=== PATIENT | male | born 1990 | race Caucasian/White ===

== ENCOUNTER 2023-08-27 18:02 | Emergency (ER) | payer OTHER ==
[2023-08-27 18:27] LABS: BASOPHILS # (AUTO) 0.1 10^3/uL (0.0-0.1); BASOPHILS % (AUTO) 0.6 %; EOSINOPHILS # (AUTO) 0.5 10^3/uL (0.0-0.7); EOSINOPHILS % (AUTO) 4.7 %; HGB - HEMOGLOBIN 15.4 g/dL (14.0-18.0); LYMPHOCYTES # (AUTO) 4.8 10^3/uL (1.5-3.5); LYMPHOCYTES % (AUTO) 40.9 %; MEAN CORPUSCULAR HGB CONC 34.2 g/dL (32.0-36.0); MEAN CORPUSCULAR VOLUME 87.7 fL (80.0-94.0); MEAN PLATELET VOLUME 9.3 fL (7.4-11.4); MONOCYTES # (AUTO) 0.9 10^3/uL (0.0-1.0); MONOCYTES % (AUTO) 7.8 %; NEUTROPHILS # (AUTO) 5.3 10^3/uL (1.5-6.6); NEUTROPHILS % (AUTO) 45.8 %; PLT - PLATELET COUNT 310 10^3/uL (130-450); RED BLOOD COUNT 5.13 10^6/uL (4.70-6.10); RED CELL DISTRIBUTION WIDTH 11.9 % (12.0-15.0); WHITE BLOOD COUNT 11.6 x10^3/uL (4.8-10.8)
[2023-08-27 18:29] LABS: BILIRUBIN,URINE NEGATIVE (NEGATIVE); GLUCOSE, URINE (UA) NEGATIVE (NEGATIVE); KETONES,URINE (UA) NEGATIVE (NEGATIVE); LEUKOCYTE ESTERASE, URINE NEGATIVE (NEGATIVE); NITRITE,URINE NEGATIVE (NEGATIVE); OCCULT BLOOD,URINE NEGATIVE (NEGATIVE); PH,URINE 7.5 PH (5.0-7.5); PROTEIN,URINE NEGATIVE (NEGATIVE); UROBILINOGEN,URINE 0.2 (NORMAL) E.U./dL (NORMAL)
[2023-08-27 18:30] LABS: CLARITY,URINE CLEAR (CLEAR)
[2023-08-27 18:44] LABS: ALBUMIN 4.8 g/dL (3.2-5.5); ALBUMIN/GLOBULIN RATIO 1.9 (1.0-2.2); BILIRUBIN,TOTAL 0.4 mg/dL (0.2-1.0); CALCIUM 9.9 mg/dL (8.5-10.3); CREATININE 0.8 mg/dL (0.6-1.3); POTASSIUM 3.7 mmol/L (3.5-4.5); TOTAL PROTEIN 7.3 g/dL (6.4-8.9)
--- NOTE | 2023-08-27 19:55 | ED Physician Documentation ---
PD HPI ABD PAIN - Stated complaint Stated Complaint: ABD PX - Chief complaint Chief Complaint: Abd Pain - History obtained from History obtained from: Patient - Additional information Additional information: HPI from patient. Patient c/o abdominal pain, across upper abdomen but most pronounced LUQ. Gradual onset last night shortly after eating dinner. Denies nausea, vomiting. Denies h/o similar symptoms. Pain does not radiate and there are no exacerbating nor ameliorating factors. Pain is constant but waxes and wanes in intensity. Review of Systems Constitutional: reports: Reviewed and negative Cardiac: reports: Reviewed and negative Respiratory: reports: Reviewed and negative GI: reports: Abdominal Pain. denies: Abdominal Swelling, Nausea, Vomiting, Constipation, Diarrhea, Hematemesis, Bloody / black stool : denies: Hematuria Skin: denies: Rash Musculoskeletal: denies: Back pain PD PAST MEDICAL HISTORY - Past Medical History Past Medical History: Yes Cardiovascular: None Respiratory: None Neuro: None Endocrine/Autoimmune: None GI: None : None HEENT: None Psych: Depression, Anxiety Musculoskeletal: None Derm: None - Past Surgical History Past Surgical History: No - Present Medications Home Medications: Ambulatory Orders Medication Instructions Recorded Confirmed Escitalopram [Lexapro] 10 mg PO DAILY 08/27/23 08/27/23 buPROPion HCL [Bupropion Xl] 150 mg PO DAILY 08/27/23 08/27/23 lamoTRIgine [LaMICtal] 100 mg PO BID 08/27/23 08/27/23 - Allergies Allergies/Adverse Reactions: Allergies Allergy/AdvReac Type Severity Reaction Status Date / Time No Known Drug Allergies Allergy Verified 08/27/23 18:07 - Social History Does the pt smoke?: Yes Smoking Status: Current every day smoker Does the pt drink ETOH?: Yes Does the pt have substance abuse?: No Substance Use and Type: Marijuana - Immunizations Immunizations are current?: Yes - POLST Patient has POLST: No PD ED PE NORMAL - Vitals Vital signs reviewed: Yes - General General: Alert and oriented X 3, No acute distress, Well developed/nourished - HEENT HEENT: Moist mucous membranes - Cardiac Cardiac: RRR, No murmur - Respiratory Respiratory: No respiratory distress, Clear bilaterally - Abdomen Abdomen: Normal bowel sounds, Soft, Non tender, Non distended - Back Back: No CVA TTP - Derm Derm: Normal color, Warm and dry, No rash Results - Vitals Vitals: Vital Signs - 24 hr 08/27/23 20:10 Heart Rate 55 L Respiratory 18 Rate Blood Pressure 138/91 H O2 Saturation 99 Oxygen O2 Source Room air - Labs Labs: Laboratory Tests 08/27/23 08/27/23 08/27/23 18:18 18:23 18:23 WBC 11.6 H RBC 5.13 Hgb 15.4 Hct 45.0 MCV 87.7 MCH 30.0 MCHC 34.2 RDW 11.9 L Plt Count 310 MPV 9.3 Neut # (Auto) 5.3 Lymph # (Auto) 4.8 H [place] # (Auto) 0.9 Eos # (Auto) 0.5 Baso # (Auto) 0.1 Absolute Nucleated RBC 0.00 Nucleated RBC % 0.0 Sodium 140 Potassium 3.7 Chloride 105 Carbon Dioxide 29 Anion Gap 6.0 BUN 12 Creatinine 0.8 Estimated GFR (MDRD) 111 Glucose 97 Calcium 9.9 Total Bilirubin 0.4 AST 15 ALT 17 Alkaline Phosphatase 96 Total Protein 7.3 Albumin 4.8 Globulin 2.5 Albumin/Globulin Ratio 1.9 Lipase 44 Urine Color YELLOW Urine Clarity CLEAR Urine pH 7.5 Ur Specific Toney 1.015 Urine Protein NEGATIVE Urine Glucose (UA) NEGATIVE Urine Ketones NEGATIVE Urine Occult Blood NEGATIVE Urine Nitrite NEGATIVE Urine Bilirubin NEGATIVE Urine Urobilinogen 0.2 (NORMAL) Ur Leukocyte Esterase NEGATIVE Ur Microscopic Review NOT INDICATED Urine Culture Comments NOT INDICATED PD Medical Decision Making - ED course Complexity details: reviewed results, re-evaluated patient, considered differential, d/w patient ED course: NAD and unremarkable exam including abdominal exam; nontender all four quadrants and periumbilicus. No concerning/diagnostic findings on CBC, ER abdominal panel. Mild leukocytosis noted (WBC 11.6). Normal UA. Etiology of symptoms is not apparent at this time. Given blood test results and lack of abdominal tenderness, emergent imaging (such as CT) is not indicated at this time. Differential diagnosis includes PUD/gastritis; given 40mg protonix and I advised him to take an OTC PPI (nexium or prilosec, or generic equivalent) QD x 2 weeks. Results d/w patient, return precautions reviewed. Departure - Departure Disposition: Home, Self Care Clinical Impression: Abdominal pain Qualifiers: Abdominal location: upper abdomen, unspecified Qualified Code(s): R10.10 - Upper abdominal pain, unspecified Condition: Good Instructions: ED Abdominal Pain Unkn Cause Male Comments: There were no concerning nor diagnostic findings on tonight's blood test. Your urinalysis was normal. The cause of your symptoms is not apparent at this time. Based on a number of factors that we discussed, including your age, the location of the pain, the findings on physical exam, and blood test results, further emergent testing is not indicated at this time (unlikely to result in a diagnosis or change (conservative/symptom-driven) management). Follow-up with your primary care provider, next available appointment, for reeva luation. Further testing might be helpful, particularly if your symptoms recur and/or do not resolve. Certainly, if your symptoms worsen in any way, you can always return to the emergency department for reevaluation. As we discussed, you were given the first dose of an acid-blocking medication in the emergency department (Protonix), and I recommend that you take a similar [id number] medication once per day for 2 weeks (such as Nexium or Prilosec). Forms: PCP List Discharge Date/Time: 08/27/23 20:36
[2023-08-27] MEDS: PANTOPRAZOLE 40 MG TABLET PO STA (20:25)
[2023-08-27 20:41] VITALS: BP 138/91; O2SAT 99
== END 2023-08-27 20:36 | disposition home or self-care (01) ==
LOC: ED 18:02
DX: R10.10 Upper abdominal pain, unspecified (principal); F17.200 Nicotine dependence, unspecified, uncomplicated
CPT/HCPCS: 36415; 80053; 81003; 83690; 85025; 99283; A9270; 81001; 87086